=== PATIENT | male | born 1935 | race Caucasian/White ===

== ENCOUNTER 2016-10-07 21:18 | Inpatient (IN) | payer BC, OTHER ==
[~2016-10-07] VITALS: Ht 170.2 cm; Wt 105.8 kg
[~2016-10-07 21:18] MED LIST: ASPIRIN ADULT L81 M2 PO; ASPIRIN ADULT L81 M4 PO; COL100 PO; FAMILY PHARMAC325 MG PO; FLO4 PO; FUROSEMIDE PO; L40 PO; LEVEMIR100 U/M1 SQ; LEVETIRACETAM PO; LIPI10 PO; LOVASTATIN40 M1 PO; LOVASTATIN40 MG PO; METOPROLOL SUCC25 M1 PO; METOPROLOL50 MG PO; NAMENDA10 M2 PO; NAMENDA5 MG PO; NEU300 PO; PHARMAC PO; PROSCAR5 MG PO; PROTONIX40 MG PO; SENNA8.6 M PO; SENNA8.6 M2 PO
[2016-10-07 22:25] LABS: PLATELET COUNT 256 x10^3mcL (130-400)
[2016-10-07 22:27] LABS: BASOPHIL % 0 % (0-2); RED CELL DISTRIBUTION WIDTH 15.2 % (11.5-14.5)
[2016-10-07 22:41] LABS: CALCIUM 9.4 mg/dL (8.5-10.1); CARBON DIOXIDE 28.7 mmol/L (21-32); CHLORIDE SERUM 102 mmol/L (98-107); GLUCOSE SERUM 134 mg/dL (74-106); POTASSIUM SERUM 4.5 mmol/L (3.5-5.1); SODIUM SERUM 140 mmol/L (136-145)
[2016-10-07 22:45] LABS: ALKALINE PHOSPHATASE 102 U/L (46-116); ALT/SGPT 18 U/L (16-63); AST/SGOT 20 U/L (15-37); BILIRUBIN TOTAL 0.6 mg/dL (0.20-1.00); LIPASE 119 IU/L (73-393); TOTAL PROTEIN, SERUM 7.1 g/dL (6.4-8.2)
[2016-10-07 22:46] LABS: ALBUMIN 3.3 g/dL (3.4-5.0)
[2016-10-08] MEDS ORDERED: LIPI20 PO (00:17)
[2016-10-08] MEDS ORDERED: CAP12.5 PO (00:17)
[2016-10-08] MEDS ORDERED: LANTUS SOLOS100 U/M1 SQ (00:18)
[2016-10-08] MEDS ORDERED: BRILINTA90 M1 PO (00:19)
[2016-10-08] MEDS ORDERED: TAMSULOSIN HYD0.4 M1 PO (00:19)
[2016-10-08] MEDS ORDERED: ALDACTONE25 MG PO (00:19)
[2016-10-08] MEDS ORDERED: KEPPRA500 MG PO (00:19)
[2016-10-08] MEDS ORDERED: ZOLOFT25 MG PO (00:19)
[2016-10-08 01:11] VITALS: BP 111/58
[2016-10-08 01:15] VITALS: Ht 170.2 cm; Wt 105.8 kg
[2016-10-08 01:23] LABS: CHOLESTEROL/HDL RATIO 2.9
[2016-10-08 01:29] LABS: FREE T4 1.38 ng/dL (0.76-1.46); FREE THYROXINE INDEX 2.9 ug/dL (1.4-4.5)
[2016-10-08 06:12] VITALS: BP 150/67
[2016-10-08 07:52] LABS: T3 TOTAL 0.74 ng/mL
[2016-10-08 08:05] LABS: BASOPHIL % 0.7 % (0-2); PLATELET COUNT 236 x10^3mcL (130-400); RED CELL DISTRIBUTION WIDTH 15.4 % (11.5-14.5)
[2016-10-08 08:11] LABS: CARBON DIOXIDE 23.2 mmol/L (21-32); CHLORIDE SERUM 104 mmol/L (98-107); CREATININE SERUM 1.8 mg/dL (0.7-1.3); GLUCOSE SERUM 102 mg/dL (74-106); POTASSIUM SERUM 3.7 mmol/L (3.5-5.1); SODIUM SERUM 138 mmol/L (136-145)
[2016-10-08 09:13] VITALS: BP 163/72
[2016-10-08 10:32] LABS: CALCIUM 8.8 mg/dL (8.5-10.1)
[2016-10-08 13:42] VITALS: BP 113/79
[2016-10-08 17:17] VITALS: BP 147/79
[2016-10-08 19:20] VITALS: BP 119/62
[2016-10-09 05:50] VITALS: BP 116/71
[2016-10-09 06:01] LABS: PLATELET COUNT 236 x10^3mcL (130-400)
[2016-10-09 06:40] LABS: CALCIUM 8.5 mg/dL (8.5-10.1); CARBON DIOXIDE 26.2 mmol/L (21-32); CHLORIDE SERUM 104 mmol/L (98-107); GLUCOSE SERUM 126 mg/dL (74-106); MAGNESIUM 1.7 mg/dL (1.8-2.4); PHOSPHOROUS 4.3 mg/dL (2.5-4.9); SODIUM SERUM 142 mmol/L (136-145)
[2016-10-09 07:02] LABS: BASOPHIL % 0 % (0-2); RED CELL DISTRIBUTION WIDTH 15.4 % (11.5-14.5)
[2016-10-09 10:04] VITALS: BP 132/57
[2016-10-09 14:27] VITALS: BP 133/67
[2016-10-09 16:45] VITALS: BP 109/64
[2016-10-09 20:49] VITALS: BP 150/68
[2016-10-09 21:00] VITALS: BP 142/75
[2016-10-09 22:07] LABS: UA SPECIFIC GRAVITY 1.025 (1.005-1.035); microscopic required? YES; urine erythrocyte 1+ (NEGATIVE)
[2016-10-10 05:42] VITALS: BP 136/63
[2016-10-10 06:22] LABS: CALCIUM 8.6 mg/dL (8.5-10.1); CARBON DIOXIDE 25.6 mmol/L (21-32); CHLORIDE SERUM 103 mmol/L (98-107); CREATININE SERUM 1.7 mg/dL (0.7-1.3); GLUCOSE SERUM 131 mg/dL (74-106); MAGNESIUM 1.6 mg/dL (1.8-2.4); PHOSPHOROUS 3.1 mg/dL (2.5-4.9); POTASSIUM SERUM 3.7 mmol/L (3.5-5.1); SODIUM SERUM 137 mmol/L (136-145)
[2016-10-10 06:25] LABS: BASOPHIL % 0.2 % (0-2); PLATELET COUNT 240 x10^3mcL (130-400)
[2016-10-10 07:03] LABS: RED CELL DISTRIBUTION WIDTH 15.6 % (11.5-14.5)
[2016-10-10 08:51] VITALS: BP 136/72
[2016-10-10 13:51] VITALS: BP 125/50
[2016-10-10] MEDS ORDERED: ZOFRAN ODT4 MG SL (15:49)
[2016-10-10 16:03] VITALS: BP 125/50
[2016-10-10] MEDS ORDERED: TOPROL XL25 MG PO (16:17)
[2016-10-10] MEDS ORDERED: PEPTO BISM262 MG/11 PO (16:56)
[2016-10-10] MEDS ORDERED: ZITHROMAX Z-PA250 MG PO (16:56)
== END 2016-10-10 16:50 | disposition home or self-care (01) | DRG 391 ==
LOC: ED 21:18 → DU 23:50
PROVIDERS: Emergency Medicine; ADMIT Family Medicine
DX: K52.9 Noninfective gastroenteritis and colitis, unspecified (principal); N17.0 Acute kidney failure with tubular necrosis; I50.43 Acute on chronic combined systolic (congestive) and diastolic (congestive) heart failure; E44.0 Moderate protein-calorie malnutrition; E86.0 Dehydration; D64.9 Anemia, unspecified; I11.0 Hypertensive heart disease with heart failure; I25.10 Atherosclerotic heart disease of native coronary artery without angina pectoris; G62.9 Polyneuropathy, unspecified; N40.1 Benign prostatic hyperplasia with lower urinary tract symptoms; N39.498 Other specified urinary incontinence; M48.06 Spinal stenosis, lumbar region; G89.29 Other chronic pain; I25.2 Old myocardial infarction; Z95.5 Presence of coronary angioplasty implant and graft; Z68.36 Body mass index [BMI] 36.0-36.9, adult; E11.65 Type 2 diabetes mellitus with hyperglycemia; N40.0 Benign prostatic hyperplasia without lower urinary tract symptoms; E87.8 Other disorders of electrolyte and fluid balance, not elsewhere classified; G40.909 Epilepsy, unspecified, not intractable, without status epilepticus
CPT/HCPCS: 82962; 83880; 84439; 87046; 87046-59; G0480; J1815; J1940; J2405; J3480; J3490; J7030; Q0092

== ENCOUNTER 2017-02-01 09:52 | Inpatient (IN) | payer BC, OTHER ==
[~2017-02-01] VITALS: Ht 170.2 cm; Wt 106.1 kg
[~2017-02-01 09:52] MED LIST changes: +ALDACTONE25 MG PO; +BRILINTA90 M1 PO; +CAP12.5 PO; +KEPPRA500 MG PO; +LANTUS SOLOS100 U/M1 SQ; +LIPI20 PO; +PEPTO BISM262 MG/11 PO; +TAMSULOSIN HYD0.4 M1 PO; +TOPROL XL25 MG PO; +ZITHROMAX Z-PA250 MG PO; +ZOFRAN ODT4 MG SL; +ZOLOFT25 MG PO
[2017-02-01 10:45] LABS: CALCIUM 8.9 mg/dL (8.5-10.1); CARBON DIOXIDE 24.9 mmol/L (21-32); CHLORIDE SERUM 108 mmol/L (98-107); GLUCOSE SERUM 80 mg/dL (74-106); POTASSIUM SERUM 4.9 mmol/L (3.5-5.1); SODIUM SERUM 141 mmol/L (136-145)
[2017-02-01 10:47] LABS: BASOPHIL % 0.5 % (0-2); PLATELET COUNT 345 x10^3mcL (130-400); RED CELL DISTRIBUTION WIDTH 14.2 % (11.5-14.5)
[2017-02-01 10:56] LABS: ALKALINE PHOSPHATASE 99 U/L (46-116); ALT/SGPT 13 U/L (16-63); AST/SGOT 15 U/L (15-37); BILIRUBIN TOTAL 0.52 mg/dL (0.20-1.00); FREE T4 1.12 ng/dL (0.76-1.46); LIPASE 152 IU/L (73-393)
[2017-02-01 11:02] LABS: ALBUMIN 2.8 g/dL (3.4-5.0)
[2017-02-01 13:11] VITALS: BP 119/83
[2017-02-01 13:52] VITALS: BP 119/83
[2017-02-01 14:14] LABS: PHOSPHOROUS 3.4 mg/dL (2.5-4.9)
[2017-02-01 14:18] LABS: CHOLESTEROL/HDL RATIO 2.9
[2017-02-01 14:25] LABS: microscopic required? YES; urine erythrocyte NEGATIVE (NEGATIVE)
[2017-02-01 15:10] LABS: AMPHETAMINE QUAL UR NONE DETECTED (NEG <=1000)
[2017-02-01 17:15] VITALS: BP 128/57
[2017-02-01 21:32] VITALS: BP 140/77
[2017-02-02 08:54] LABS: CALCIUM 8.8 mg/dL (8.5-10.1); CARBON DIOXIDE 21.8 mmol/L (21-32); CHLORIDE SERUM 108 mmol/L (98-107); CREATININE SERUM 2.1 mg/dL (0.7-1.3); GLUCOSE SERUM 174 mg/dL (74-106); MAGNESIUM 2.1 mg/dL (1.8-2.4); PHOSPHOROUS 4.4 mg/dL (2.5-4.9); POTASSIUM SERUM 4.4 mmol/L (3.5-5.1); SODIUM SERUM 142 mmol/L (136-145)
[2017-02-02 08:56] LABS: BASOPHIL % 0.2 % (0-2); PLATELET COUNT 293 x10^3mcL (130-400); RED CELL DISTRIBUTION WIDTH 14.1 % (11.5-14.5)
[2017-02-02 10:43] VITALS: BP 125/65
[2017-02-02 14:06] VITALS: BP 110/77
[2017-02-02 17:37] VITALS: BP 124/69
[2017-02-02 20:48] VITALS: BP 148/72
[2017-02-03 05:41] VITALS: BP 113/69
[2017-02-03 06:05] LABS: PLATELET COUNT 315 x10^3mcL (130-400); RED CELL DISTRIBUTION WIDTH 13.7 % (11.5-14.5)
[2017-02-03 06:23] LABS: CALCIUM 8.6 mg/dL (8.5-10.1); CARBON DIOXIDE 23.9 mmol/L (21-32); CHLORIDE SERUM 101 mmol/L (98-107); CREATININE SERUM 2.3 mg/dL (0.7-1.3); GLUCOSE SERUM 173 mg/dL (74-106); MAGNESIUM 1.9 mg/dL (1.8-2.4); PHOSPHOROUS 3.4 mg/dL (2.5-4.9); POTASSIUM SERUM 3.9 mmol/L (3.5-5.1); SODIUM SERUM 131 mmol/L (136-145)
[2017-02-03 06:34] LABS: BASOPHIL % 0 % (0-2)
[2017-02-03 09:39] VITALS: BP 144/75
[2017-02-03 13:21] VITALS: BP 131/50
[2017-02-04 06:09] VITALS: BP 107/71
[2017-02-04 09:36] VITALS: BP 107/71
[2017-02-04 11:25] LABS: BASOPHIL % 0.1 % (0-2); PLATELET COUNT 334 x10^3mcL (130-400); RED CELL DISTRIBUTION WIDTH 12.9 % (11.5-14.5)
[2017-02-04 11:54] LABS: CHLORIDE SERUM 103 mmol/L (98-107); CREATININE SERUM 2.4 mg/dL (0.7-1.3); GLUCOSE SERUM 209 mg/dL (74-106); PHOSPHOROUS 4.3 mg/dL (2.5-4.9); SODIUM SERUM 137 mmol/L (136-145)
[2017-02-04 13:51] VITALS: BP 157/62
[2017-02-04] MEDS ORDERED: COR3 PO (16:31)
[2017-02-04 16:51] VITALS: BP 157/62
[2017-02-04 17:18] VITALS: BP 167/71
[2017-02-04] MEDS ORDERED: KEPPRA500 MG PO (21:01)
[2017-02-04] MEDS ORDERED: BRILINTA90 M1 PO (21:03)
== END 2017-02-04 18:46 | DRG 871 ==
LOC: ED 09:52 → DU 11:45
PROVIDERS: Emergency Medicine; Family Medicine; ADMIT Family Medicine
DX: A41.9 Sepsis, unspecified organism (principal); I50.43 Acute on chronic combined systolic (congestive) and diastolic (congestive) heart failure; E43 Unspecified severe protein-calorie malnutrition; N17.0 Acute kidney failure with tubular necrosis; J69.0 Pneumonitis due to inhalation of food and vomit; D68.69 Other thrombophilia; G40.909 Epilepsy, unspecified, not intractable, without status epilepticus; I25.10 Atherosclerotic heart disease of native coronary artery without angina pectoris; E11.65 Type 2 diabetes mellitus with hyperglycemia; E11.21 Type 2 diabetes mellitus with diabetic nephropathy; I11.0 Hypertensive heart disease with heart failure; N39.498 Other specified urinary incontinence; F32.9 Major depressive disorder, single episode, unspecified; K21.9 Gastro-esophageal reflux disease without esophagitis; R65.20 Severe sepsis without septic shock; N40.1 Benign prostatic hyperplasia with lower urinary tract symptoms; I25.2 Old myocardial infarction; Z79.4 Long term (current) use of insulin; Z96.653 Presence of artificial knee joint, bilateral; Z95.5 Presence of coronary angioplasty implant and graft; Z85.828 Personal history of other malignant neoplasm of skin
CPT/HCPCS: 82962; 83880; 84439; 94150; J1815; J1940; J1956; J2270; J3490; J7030; J7620; Q0092